=== PATIENT | male | born 2000 | race African-American/Black ===

== ENCOUNTER 2024-02-18 19:18 | Emergency (ER) | payer OTHER ==
[~2024-02-18] VITALS: Ht 177.8 cm; Wt 122.5 kg
[2024-02-18 23:07] VITALS: PULSE 70; RESP 16; TEMP 98.5; O2SAT 98
== END 2024-02-18 23:08 | disposition home or self-care (01) ==
LOC: FSED 19:27
DX: S50.12XA Contusion of left forearm, initial encounter (principal); L25.9 Unspecified contact dermatitis, unspecified cause; V43.52XA Car driver injured in collision with other type car in traffic accident, initial encounter; Y92.488 Other paved roadways as the place of occurrence of the external cause
CPT/HCPCS: 99283